=== PATIENT | female | born 1990 | race Caucasian/White ===

== ENCOUNTER 2019-07-19 13:18 | Outpatient (CLI) | payer MEDICAID, SELFPAY ==
--- NOTE | 2019-07-19 13:26 | US_ITS ---
WS: [id number] OB ultrasound, limited, 07/19/2019 Clinical Data: SCREENING FOR UNCERTAIN DATES Comparison: None. Findings: There is a twin . Twin A: The crown-rump length is 2.98 cm with the yolk sac measuring 0.56 cm. The cervical length is 3.91 cm and is closed. heart rate is 167 bpm. The calculated gestational age is 9 weeks 6 days with an MISTY of approximately 02/15/2020. Twin B: [place]-rump length is 3.25 cm with the yolk sac measuring 0.53 cm. The cervical length is 3.91 cm and is closed. The heart rate is 176 bpm. The calculated gestational age is 10 weeks 1 day with an MISTY of approximately 02/13/2020 US/US OB <= 14 wk fetus twins Impression: 1. Twin . 2. heart rate of twin A is 167 bpm, gestational age 9 weeks 6 days with an MISTY of 02/15/2020. 3. heart rate of twin B is 176 bpm, gestational age 10 weeks 1 day with E DD of 02/13/2020.
== END 2019-07-19 13:19 | disposition home or self-care (01) ==
LOC: RAD 13:23
PROVIDERS: Family Provider Nurse Practitioner Family; PCP Family Medicine; Visit Provider Family Medicine
DX: Z36.87 Encounter for antenatal screening for uncertain dates (principal); O30.001 Twin pregnancy, unspecified number of placenta and unspecified number of amniotic sacs, first trimester; Z3A.10 10 weeks gestation of pregnancy
CPT/HCPCS: 76801; 76802

== ENCOUNTER 2019-08-17 14:21 | Outpatient (CLI) | payer MEDICAID, SELFPAY ==
--- NOTE | 2019-08-17 14:15 | US_ITS ---
WS: [id number] US OB limited twins [id number] REASON FOR EXAM: TWIN /?NUMBER OF PLACENTA NUMBER OR AMNIOTIC SACS FINDINGS: The cervix is found to be closed. There was normal. A and B have normal heart rates in the 153 bpm range. 2 gestational's sacs are seen. A posterior placenta is noted. US/US OB limited twins [id number] IMPRESSION: Twin is seen. 2 gestational sacs. The placenta is posteriorly. The fetus is both appear to be active and viable.
== END 2019-08-17 14:22 | disposition home or self-care (01) ==
LOC: US 14:23
PROVIDERS: Family Provider Nurse Practitioner Family; PCP Family Medicine; Visit Provider Family Medicine
DX: O30.091 Twin pregnancy, unable to determine number of placenta and number of amniotic sacs, first trimester (principal); Z3A.00 Weeks of gestation of pregnancy not specified
CPT/HCPCS: 76815

== ENCOUNTER 2019-09-06 19:41 | Emergency (ER) | payer MEDICAID, SELFPAY ==
[2019-09-06 20:17] VITALS: BP 128/44; PULSE 89; RESP 17; TEMP 36.9; O2SAT 96; BMI 38.7
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
[2019-09-06 21:43] VITALS: BP 124/72; PULSE 84; RESP 16; O2SAT 99
--- NOTE | 2019-09-07 11:24 | DCPLANNER ---
banking manager had message to schedule a follow up appointment for patient with ortho. banking manager called ortho, spoke with Sunitha, gave clinic patients information. banking manager was told that patients information would be printed and reviewed. Clinic will call skilled nursing case manager and patient with appointment information.
--- NOTE | 2019-09-08 09:25 | DCPLANNER ---
manager of tax had message from the ortho clinic. manager of tax called ortho, spoke with Pat to confirm that patient was called and told to follow up with current ortho provider. manager of tax was told that patient had not been called, upper caser called patient. manager of tax spoke with patient, informed patient that she would need to follow up with the ortho provider that she has seen in the past.
== END 2019-09-06 21:45 | disposition home or self-care (01) ==
PROVIDERS: Emergency Provider Physician Assistant; Family Provider Nurse Practitioner Family; PCP Family Medicine
DX: S50.11XD Contusion of right forearm, subsequent encounter (principal); M79.89 Other specified soft tissue disorders; F17.200 Nicotine dependence, unspecified, uncomplicated; V89.2XXD Person injured in unspecified motor-vehicle accident, traffic, subsequent encounter
CPT/HCPCS: 12345; 99281

== ENCOUNTER → 2019-09-09 13:29 | Outpatient (BNVA) | payer MEDICAID, SELFPAY | PROVIDERS: Family Provider Nurse Practitioner Family; PCP Family Medicine; Visit Provider Nurse Practitioner Women's Health | DX: O30.042 Twin pregnancy, dichorionic/diamniotic, second trimester (principal); Z3A.17 17 weeks gestation of pregnancy | CPT/HCPCS: 81000 ==

== ENCOUNTER → 2019-09-13 13:21 | Outpatient (BNVA) | payer MEDICAID, SELFPAY | PROVIDERS: Family Provider Nurse Practitioner Family; PCP Family Medicine; Visit Provider Obstetrics & Gynecology | DX: Z46.89 Encounter for fitting and adjustment of other specified devices (principal) | CPT/HCPCS: 84315 ==

== ENCOUNTER 2019-09-20 11:27 | Outpatient (CLI) | payer MEDICAID, SELFPAY ==
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
== END 2019-09-20 11:28 | disposition home or self-care (01) ==
LOC: RAD 11:30
PROVIDERS: Family Provider Nurse Practitioner Family; PCP Family Medicine; Visit Provider Physician Assistant Medical
DX: S42.351A Displaced comminuted fracture of shaft of humerus, right arm, initial encounter for closed fracture (principal); X58.XXXA Exposure to other specified factors, initial encounter
CPT/HCPCS: 73060

== ENCOUNTER → 2019-09-26 13:07 | Outpatient (BNVA) | payer MEDICAID, SELFPAY | PROVIDERS: Family Provider Nurse Practitioner Family; PCP Family Medicine; Visit Provider Obstetrics & Gynecology | DX: Z36.89 Encounter for other specified antenatal screening (principal); O30.002 Twin pregnancy, unspecified number of placenta and unspecified number of amniotic sacs, second trimester; Z3A.20 20 weeks gestation of pregnancy | CPT/HCPCS: 76805; 76810; 80307; 82950 ==

== ENCOUNTER → 2019-11-01 09:15 | Outpatient (BNVA) | payer MEDICAID, SELFPAY | PROVIDERS: Family Provider Nurse Practitioner Family; PCP Family Medicine; Visit Provider Obstetrics & Gynecology | DX: O99.322 Drug use complicating pregnancy, second trimester (principal); O30.042 Twin pregnancy, dichorionic/diamniotic, second trimester; O09.90 Supervision of high risk pregnancy, unspecified, unspecified trimester; R87.612 Low grade squamous intraepithelial lesion on cytologic smear of cervix (LGSIL); O99.330 Smoking (tobacco) complicating pregnancy, unspecified trimester | CPT/HCPCS: 80307; 81000 ==

== ENCOUNTER → 2019-11-21 13:57 | Outpatient (BNVA) | payer MEDICAID, SELFPAY | PROVIDERS: Family Provider Nurse Practitioner Family; PCP Family Medicine; Visit Provider Obstetrics & Gynecology | DX: O09.90 Supervision of high risk pregnancy, unspecified, unspecified trimester (principal) | CPT/HCPCS: 81000; 82950; 85027 ==

== ENCOUNTER → 2019-12-05 10:15 | Outpatient (BNVA) | payer MEDICAID, SELFPAY | PROVIDERS: Family Provider Nurse Practitioner Family; PCP Family Medicine; Visit Provider Obstetrics & Gynecology | DX: Z34.90 Encounter for supervision of normal pregnancy, unspecified, unspecified trimester (principal) | CPT/HCPCS: 81000 ==

== ENCOUNTER → 2019-12-23 14:09 | Outpatient (BNVA) | payer MEDICAID, SELFPAY | PROVIDERS: Family Provider Nurse Practitioner Family; PCP Family Medicine; Visit Provider Obstetrics & Gynecology | DX: O99.323 Drug use complicating pregnancy, third trimester (principal); O30.043 Twin pregnancy, dichorionic/diamniotic, third trimester; O99.613 Diseases of the digestive system complicating pregnancy, third trimester; K21.9 Gastro-esophageal reflux disease without esophagitis; O99.333 Smoking (tobacco) complicating pregnancy, third trimester; F17.210 Nicotine dependence, cigarettes, uncomplicated; O35.9XX2 Maternal care for (suspected) fetal abnormality and damage, unspecified, fetus 2; F12.90 Cannabis use, unspecified, uncomplicated; O99.213 Obesity complicating pregnancy, third trimester; Z3A.32 32 weeks gestation of pregnancy | CPT/HCPCS: 81000 ==

== ENCOUNTER → 2020-01-03 07:51 | Outpatient (BNVA) | payer MEDICAID, SELFPAY | PROVIDERS: Family Provider Nurse Practitioner Family; PCP Family Medicine; Visit Provider Obstetrics & Gynecology | DX: O09.90 Supervision of high risk pregnancy, unspecified, unspecified trimester (principal); O30.043 Twin pregnancy, dichorionic/diamniotic, third trimester; Z3A.00 Weeks of gestation of pregnancy not specified | CPT/HCPCS: 81000 ==

== ENCOUNTER → 2020-01-12 10:21 | Outpatient (BNVA) | payer MEDICAID, SELFPAY | PROVIDERS: Family Provider Nurse Practitioner Family; PCP Family Medicine; Visit Provider Obstetrics & Gynecology | DX: O30.042 Twin pregnancy, dichorionic/diamniotic, second trimester (principal) | CPT/HCPCS: 81000 ==

== ENCOUNTER → 2020-01-25 09:03 | Outpatient (BNVA) | payer MEDICAID, SELFPAY | PROVIDERS: Family Provider Nurse Practitioner Family; PCP Family Medicine; Visit Provider Obstetrics & Gynecology | DX: Z34.90 Encounter for supervision of normal pregnancy, unspecified, unspecified trimester (principal); O30.043 Twin pregnancy, dichorionic/diamniotic, third trimester | CPT/HCPCS: 81000; 87635 ==

== ENCOUNTER → 2020-03-12 10:52 | Outpatient (BNVA) | payer MEDICAID, SELFPAY | PROVIDERS: Family Provider Nurse Practitioner Family; PCP Family Medicine; Visit Provider Obstetrics & Gynecology | DX: R87.612 Low grade squamous intraepithelial lesion on cytologic smear of cervix (LGSIL) (principal) | CPT/HCPCS: 88175 ==

== ENCOUNTER 2021-01-10 19:19 | Inpatient (IN) | payer SELFPAY ==
[2021-01-10 20:46] LABS: Basophils % 0.7 %; Eosinophils # 0.2 10^3/uL (0.0-0.8); Eosinophils % 3.4 %; Hematocrit 41.1 % (37.0-47.0); Hemoglobin 13.5 g/dL (11.5-15.3); Lymphocytes # 2.1 10^3/uL (0.8-4.8); Lymphocytes % 35.4 %; Mean Corpuscular HGB Conc 32.8 g/dL (30.0-36.0); Mean Corpuscular Hemoglobin 31.3 pg (28.0-34.0); Mean Corpuscular Volume 95.4 fL (81-99); Mean Platelet Volume 10.7 fL (7.4-10.4); Monocytes # 0.5 10^3/uL (0.2-0.9); Monocytes % 8.7 %; Neutrophils # 3.01 10^3/uL (1.8-7.7); Neutrophils % 51.6 %; Nucleated Red Blood Cells % 0 %; Platelet Count 222 10^3/cmm (130-400); Red Blood Count 4.31 10^6/uL (4.1-5.3); Red Cell Distribution Width 12.9 % (12.1-15.1); White Blood Count 5.8 10^3/uL (4.0-10.0)
[2021-01-10 20:47] LABS: Bilirubin Urine Neg (Negative); Blood Urine 3+ (Negative); Glucose Urine UA Norm (Normal); Ketones Urine Negative (Negative); Nitrate Urine Negative (Negative); Protein Urine Trace (Negative); Specific Gravity, Urine 1.025 (1.005-1.030); Urine Appearance Hazy (CLEAR); Urine Color Yellow (Yellow); pH Urine 5 (5-7)
[2021-01-10 20:48] LABS: Add Urine Microscopic? YES; Leukocyte Esterase Urine Negative (Negative); RBC Urine 0-4 /hpf (0-2); Squamous Epithelial Cell Urine 40-55 /hpf (0-5); Urobilinogen Urine Norm (Negative)
[2021-01-10 20:49] LABS: Add Urine Culture? Yes; Bacteria Urine 4+ /hpf
[2021-01-10 20:50] LABS: Amphetamines Screen Urine Positive (Negative); Barbiturates Screen Urine Negative (Negative); Benzodiazepines Screen Urine Negative (Negative); Cocaine Screen Urine Negative (Negative); Opiate Screen Urine Negative (Negative); PCP Screen Urine Negative (Negative); THC Screen Urine Positive (Negative)
[2021-01-10] MEDS: LORazepam 1 mg Tablet PO (20:51)
[2021-01-10 20:52] VITALS: BP 155/80; PULSE 89; RESP 18; TEMP 36.6; O2SAT 98; BMI 36.0
[2021-01-10 20:56] LABS: HCG, Serum Qual Negative (Negative)
[2021-01-10 21:11] LABS: Acetaminophen < 5.0 ug/mL (10-30); Alanine Aminotransferase 15 U/L (0-33); Albumin Level 4.4 g/dL (3.5-5.2); Alcohol Level < 10 mg/dL (0-10); Alkaline Phosphatase 78 IU/L (35-105); Anion Gap 13.8 (5-19); Aspartate Amino Transferase 15 U/L (0-32); Blood Urea Nitrogen 11 mg/dL (6-20); Calcium 9.3 mg/dL (8.5-10.5); Carbon Dioxide 25 mmol/L (22-29); Chloride 105 mmol/L (98-107); Globulin 2.6 g/dL (1.3-4.6); Glomerular Filtration Rate 83.1 mL/min (90-130); Glucose 106 mg/dL (65-115); Osmolality Calculated 290 mOsm/kg (285-295); Potassium 3.8 mmol/L (3.5-5.1); Salicylate < 0.3 mg/dL (3-10); Sodium 140 mmol/L (136-145); Thyroid Stimulating Hormone 0.61 uIU/mL (0.27-4.20); Total Bilirubin 0.2 mg/dL (0.15-1.2)
--- NOTE | 2021-01-10 21:28 | ED_ITS ---
HPI - Psych General: Chief Complaint: Psychiatric Symptoms Stated Complaint: SI Time Seen by Provider: 01/10/21 19:30 History of Present Illness: HPI Narrative: The patient is a 30-year-old female who comes to the ER complaining of suicidal ideations. She made a statement that she was going to kill herself to the [employer] who wrote a 96-hour hold. She is upset about circumstances in her life related to DFS being called and her baby's father have the children. She says the children are safe with the father but she is upset that he gets them. She says she does not want to wake up. She says that she is depressed and her life is very tough right now. complaint: suicidal ideation Context: significant life stressor Associated psychiatric symptoms: depression and suicidal ideation Associated symptoms: Reports suicidal ideation If self harm: admits thoughts of self harm Review of Systems General: Reports: 10 or more systems reviewed and unremarkable except in HPI and below Const: Denies: fatigue Eyes: Denies: change in vision, blurry vision or eye redness ENMT: Denies: throat pain, swelling of lips/tongue, ear or mastoid pain or nasal congestion Card: Denies: chest pain, palpitations, irregular heart rhythm, edema, dyspnea on exertion or orthopnea Resp: Denies: dyspnea, productive cough or non-productive cough GI: Denies: abdominal pain, diarrhea or GI cramping : Denies: flank pain, difficulty voiding, urinary frequency or urinary urgency Musc: Denies: neck pain, back pain, extremity pain, joint pain, joint redness, limited range of motion or muscle weakness Skin/Breast: Denies: rash, pruritus, erythema, skin pain or skin tenderness Neuro: Denies: headache(s), numbness in extremities, weakness in extremities, sensory changes, difficulty walking, dizziness, confusion or Slurred speech present Psych: Reports: suicidal ideation Endo: Denies: polyuria All/Imm: Denies: urticaria, throat swelling or tongue swelling PFSH ED PFSH: Medical History No pertinent past medical history Denies diabetes, asthma, hypertension, seizures, DVT/PE PMD: None Surgical History Breast abscess Left breast for MRSA about 2014-was done under IV sedation in [place] emergency room. Status post delivery 01/28/2020-primary with tubal ligation performed in [facility]--operative report obtained and scanned. T-shaped uterine incision. Tubal ligation performed. performed by Dr. Song and tubal ligation and closure of incision performed by Dr. Jha Status post tubal ligation 01/28/2020--tubal ligation performed at time of . Bilateral partial salpingectomy performed by Dr. Jha at [facility]. Pathology unable to be obtained Family History Grandfather Chronic kidney disease (CKD) Grandfather Mcnally, paternal Diabetes Hypertension Grandmother Diabetes Father Diabetes Grandfather Stroke Denies family history of CAD (coronary artery disease) Clotting disorder Dementia Hyperlipidemia Psychiatric illness Suicide Anesthesia complication Bleeding disorder Family history of premature coronary artery disease Lung disease Cancer Social History Smoking and tobacco status: former smoker Alcohol intake: never Female Reproductive History: Date of last menstrual period: 01/03/21 Physical Exam Const: COMMON NORMALS: no acute distress, average body habitus, patient oriented x3, no limitations, healthy appearing, alert and well nourished GENERAL APPEARANCE: cooperative, comfortable and well developed ORIENTATION/CONSCIOUSNESS: Yes awake, Yes oriented to person, Yes oriented to place and Yes oriented to time HENMT: COMMON NORMALS: normocephalic, external ears normal and Normal external nose present HEAD & SCALP: normal to inspection and normocephalic NOSE: Normal external nose present EXTERNAL EAR: Yes external ears normal MOUTH: Normal oral and palatal mucosa present THROAT: posterior oropharynx normal Eye: COMMON NORMALS: Equal, round and reactive pupils present and EOMs intact bilaterally GENERAL EYE: appearance normal, both eyes and all related structures PUPIL: Yes Equal, round and reactive pupils present Neck/C-Spine: COMMON NORMALS: full ROM, no lymphadenopathy, no meningeal signs and no JVD GENERAL: Yes normal visual inspection Lymph: LYMPHATIC: no lymphadenopathy noted Chest: COMMONS NORMALS: normal inspection of the chest and normal palpation of entire chest wall Resp: COMMON NORMALS: normal respiratory effort, No retractions, No use of accessory muscles, clear to auscultation bilaterally and percussion normal EFFORT & INSPECTION: Yes able to speak in complete sentences AUSCULTATION: clear to auscultation bilaterally PERCUSSION: percussion normal Cardio: COMMON NORMALS: no JVD, regular rate, regular rhythm, S1 normal heart sound present, S2 normal heart sound present and Peripheral pulses 2+ throughout RATE: regular rate RHYTHM: regular rhythm HEART SOUNDS: S1 normal heart sound present and S2 normal heart sound present PERIPHERAL PULSES: Peripheral pulses 2+ throughout GI: COMMON NORMALS: Normal to inspection, nondistended, normoactive bowel sounds present, Soft to palpation, non-tender and no masses INSPECTION: Yes normal to inspection PALPATION: Yes Soft to palpation : COMMON NORMALS: Yes no CVA tenderness BLADDER/KIDNEY EXAM: Yes no CVA tenderness Back/Pelvis: COMMON NORMALS: no CVA tenderness, thoracic and lumbar spine normal to inspection, no thoracic nor lumbar tenderness and thoraco-lumbar ROM normal Extremity: COMMON NORMALS: normal to inspection, full ROM, capillary refill normal, no joint enlargement and no pedal edema GENERAL: Yes normal exam except as noted Neuro: COMMON NORMALS: patient oriented x3, CN's II-XII intact bilaterally, moves all extremities, no focal motor deficits, no sensory deficits noted and gait normal SENSORIUM/ORIENTATION: Yes alert, Yes oriented to person, Yes oriented to place and Yes oriented to time MENINGEAL SIGNS: Yes no meningeal signs Psych: COMMON NORMALS: speech normal APPEARANCE: Yes unkempt ATTITUDE: Yes calm SPEECH: Yes normal speech MOOD & AFFECT: Yes depressed mood, Yes anxious, Yes sad and Yes tearful THOUGHT CONTENT: Yes Suicidality present INSIGHT: Poor insight present (Psych) JUDGEMENT: Poor judgement present (Psych) Skin: COMMON NORMALS: no rashes or lesions noted GENERAL SKIN EXAM: no rashes or lesions noted Course Vital Signs: Vital signs: Vital Signs Temperature 97.9 F 01/10/21 20:52 Pulse Rate 89 01/10/21 20:52 Respiratory Rate 18 01/10/21 20:52 Blood Pressure 155/80 01/10/21 20:52 Pulse Oximetry 98 01/10/21 20:52 MDM - Psych MDM Narrative: Medical decision making narrative: The patient is expressing suicidal ideations and is here on a 96-hour hold. Discussed with Dr. Mckeon who accepts for admission. Possible she has a small UTI as well. Recommended Keflex for 5 days. Stable for admission. Lab Data: Labs: Lab Results 01/10/21 01/10/21 01/10/21 Range/Units 20:16 20:16 20:38 WBC 5.8 (4.0-10.0) 10^3/ uL RBC 4.31 (4.1-5.3) 10^6/u L Hgb 13.5 (11.5-15.3) g/dL Hct 41.1 (37.0-47.0) % MCV 95.4 (81-99) fL MCH 31.3 (28.0-34.0) pg MCHC 32.8 (30.0-36.0) g/dL RDW 12.9 (12.1-15.1) % Plt Count 222 (130-400) 10^3/c mm MPV 10.7 H (7.4-10.4) fL Neut % (Auto) 51.6 % Lymph % (Auto) 35.4 % Traill % (Auto) 8.7 % Eos % (Auto) 3.4 % Baso % (Auto) 0.7 % Neut # (Auto) 3.01 (1.8-7.7) 10^3/u L Lymph # (Auto) 2.1 (0.8-4.8) 10^3/u L Traill # (Auto) 0.5 (0.2-0.9) 10^3/u L Eos # (Auto) 0.2 (0.0-0.8) 10^3/u L Baso # (Auto) 0.0 (0.0-0.1) 10^3/u L Nucleated RBC % (a uto) 0 % Nucleated RBCs # 0.0 /100WBC Sodium (136-145) mmol/L Potassium (3.5-5.1) mmol/L Chloride (98-107) mmol/L Carbon Dioxide (22-29) mmol/L Anion Gap (5-19) BUN (6-20) mg/dL Creatinine (0.5-0.9) mg/dL GFR Calculation (90-130) mL/min Glucose (65-115) mg/dL Calculated Osmolal ity (285-295) mOsm/k g Calcium (8.5-10.5) mg/dL Total Bilirubin (0.15-1.2) mg/dL AST (0-32) U/L ALT (0-33) U/L Alkaline Phosphata se (35-105) IU/L Total Protein (6.6-8.7) g/dL Albumin (3.5-5.2) g/dL Globulin (1.3-4.6) g/dL TSH (0.27-4.20) uIU/ mL HCG, Qual (Negative) Urine Color Yellow (Yellow) Urine Appearance Hazy A (CLEAR) Urine pH 5 (5-7) Ur Specific Gravit y 1.025 (1.005-1.030) Urine Protein Trace (Negative) Urine Glucose (UA) Norm (Normal) Urine Ketones Negative (Negative) Urine Blood 3+ H (Negative) Urine Nitrate Negative (Negative) Urine Bilirubin Neg (Negative) Urine Urobilinogen Norm (Negative) mg/dL Ur Leukocyte Gisela ase Negative (Negative) Urine RBC 0-4 H (0-2) /hpf Urine WBC 10-15 H (0-5) /hpf Ur Squamous Epith Cells 40-55 H (0-5) /hpf Amorphous Sediment Not Reportable Urine Bacteria 4+ H (NONE) /hpf Salicylates (3-10) mg/dL Urine Opiates Scre en Negative (Negative) ng/mL Acetaminophen (10-30) ug/mL Ur Barbiturates Sc reen Negative (Negative) ng/mL Ur Phencyclidine S crn Negative (Negative) ng/mL Ur Amphetamines Sc reen Positive H (Negative) ng/mL U Benzodiazepines Scrn Negative (Negative) ng/mL Urine Cocaine Scre en Negative (Negative) ng/mL U Marijuana (THC) Screen Positive H (Negative) ng/mL Ethyl Alcohol (0-10) mg/dL 01/10/21 01/10/21 Range/Units 20:38 20:38 WBC (4.0-10.0) 10^3/ uL RBC (4.1-5.3) 10^6/u L Hgb (11.5-15.3) g/dL Hct (37.0-47.0) % MCV (81-99) fL MCH (28.0-34.0) pg MCHC (30.0-36.0) g/dL RDW (12.1-15.1) % Plt Count (130-400) 10^3/c mm MPV (7.4-10.4) fL Neut % (Auto) % Lymph % (Auto) % Traill % (Auto) % Eos % (Auto) % Baso % (Auto) % Neut # (Auto) (1.8-7.7) 10^3/u L Lymph # (Auto) (0.8-4.8) 10^3/u L Traill # (Auto) (0.2-0.9) 10^3/u L Eos # (Auto) (0.0-0.8) 10^3/u L Baso # (Auto) (0.0-0.1) 10^3/u L Nucleated RBC % (a uto) % Nucleated RBCs # /100WBC Sodium 140 (136-145) mmol/L Potassium 3.8 (3.5-5.1) mmol/L Chloride 105 (98-107) mmol/L Carbon Dioxide 25 (22-29) mmol/L Anion Gap 13.8 (5-19) BUN 11 (6-20) mg/dL Creatinine 0.8 (0.5-0.9) mg/dL GFR Calculation 83.1 L (90-130) mL/min Glucose 106 (65-115) mg/dL Calculated Osmolal ity 290 (285-295) mOsm/k g Calcium 9.3 (8.5-10.5) mg/dL Total Bilirubin 0.2 (0.15-1.2) mg/dL AST 15 (0-32) U/L ALT 15 (0-33) U/L Alkaline Phosphata se 78 (35-105) IU/L Total Protein 7.0 (6.6-8.7) g/dL Albumin 4.4 (3.5-5.2) g/dL Globulin 2.6 (1.3-4.6) g/dL TSH 0.61 (0.27-4.20) uIU/ mL HCG, Qual Negative (Negative) Urine Color (Yellow) Urine Appearance (CLEAR) Urine pH (5-7) Ur Specific Gravit y (1.005-1.030) Urine Protein (Negative) Urine Glucose (UA) (Normal) Urine Ketones (Negative) Urine Blood (Negative) Urine Nitrate (Negative) Urine Bilirubin (Negative) Urine Urobilinogen (Negative) mg/dL Ur Leukocyte Gisela ase (Negative) Urine RBC (0-2) /hpf Urine WBC (0-5) /hpf Ur Squamous Epith Cells (0-5) /hpf Amorphous Sediment Urine Bacteria (NONE) /hpf Salicylates < 0.3 L (3-10) mg/dL Urine Opiates Scre en (Negative) ng/mL Acetaminophen < 5.0 L (10-30) ug/mL Ur Barbiturates Sc reen (Negative) ng/mL Ur Phencyclidine S crn (Negative) ng/mL Ur Amphetamines Sc reen (Negative) ng/mL U Benzodiazepines Scrn (Negative) ng/mL Urine Cocaine Scre en (Negative) ng/mL U Marijuana (THC) Screen (Negative) ng/mL Ethyl Alcohol < 10 (0-10) mg/dL Discharge Plan Discharge Patient Disposition: Admitted As Inpatient Clinical Impression: Suicidal ideation, Urinary tract infection Condition: Stable Coding Level of Care Code ED Supervisor Pile Driving for Mechelle Weston
[2021-01-10] MEDS: cephALEXin 500 mg Capsule PO (21:44)
[2021-01-10 22:58] VITALS: BP 115/80; PULSE 96; RESP 20; TEMP 36.5; O2SAT 99
[2021-01-11] MEDS: hyDROXYzine 25 mg Capsule 50 MG PO ×2 (00:26→21:25)
[2021-01-11] MEDS: acetaminophen 325 mg Tablet 650 MG PO (00:26)
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
[2021-01-11 06:00] VITALS: BP 96/55; PULSE 71; RESP 18; TEMP 36.8; O2SAT 97
[2021-01-11] MEDS: cephALEXin 500 mg Capsule PO ×2 (08:47→21:25)
[2021-01-11 14:00] VITALS: BP 124/76; PULSE 65; RESP 17; TEMP 36.7; O2SAT 97
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
[2021-01-11] MEDS: sertraline 50 mg Tablet PO (17:53)
--- NOTE | 2021-01-11 21:30 | PC.NURSE ---
vistaril given for anxiety
[2021-01-11 22:00] VITALS: BP 134/80; PULSE 84; RESP 18; TEMP 36.5; O2SAT 98
[2021-01-12 06:00] VITALS: BP 135/83; PULSE 66; RESP 17; TEMP 36.4; O2SAT 95
[2021-01-12] MEDS: sertraline 50 mg Tablet PO (08:39)
[2021-01-12] MEDS: cephALEXin 500 mg Capsule PO ×2 (08:40→21:37)
[2021-01-12 14:00] VITALS: BP 130/75; PULSE 62; RESP 18; TEMP 36.6; O2SAT 100
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
[2021-01-12 20:48] VITALS: BP 111/70; PULSE 94; RESP 16; TEMP 37; O2SAT 95
[2021-01-12] MEDS: hyDROXYzine 25 mg Capsule 50 MG PO (21:38)
[2021-01-12] MEDS: trazodone 50 mg Tablet PO (21:38)
--- NOTE | 2021-01-12 21:40 | PC.NURSE ---
patient requested meds for sleep and anxiety. Trazodone 50mg PO and Vistaril 50MG PO given.
[2021-01-13 06:00] VITALS: BP 135/75; PULSE 74; RESP 16; TEMP 36.8; O2SAT 94
[2021-01-13] MEDS: cephALEXin 500 mg Capsule PO ×2 (08:18→20:57)
[2021-01-13] MEDS: sertraline 50 mg Tablet PO (08:18)
[2021-01-13 14:00] VITALS: BP 135/84; PULSE 100; RESP 16; TEMP 36.7; O2SAT 97
--- NOTE | 2021-01-13 14:33 | P.PN_ITS ---
Subjective NPU Subjective: Interval history: I met with the patient in the day room and she says that she is doing well. She slept well, appetite is good, and she is feeling less helpless, hopeless, and worthless. She is not feeling suicidal today. No homicidal ideation. She denies any auditory or visual hallucinations. She denies side effects from medication. Mental Status Exam MSE Comments: The patient's grooming continues to improve, and she is more relaxed and cooperative. Eye contact was good. She was alert and oriented to person and situation. Attention was intact to exam. Mood is improved, and affect was brighter. Thought process: Logical and goal-directed. Thought content: She denies having suicidal and homicidal ideation today. No auditory or visual hallucinations. No delusions are noted. Insight and judgment are improving, as is impulse control. Vitals/I&O/Wt Last Vital Signs Temp 98.0 F 01/13/21 14:00 Pulse 100 01/13/21 14:00 Resp 16 01/13/21 14:00 BP 135/84 01/13/21 14:00 Pulse Ox 97 01/13/21 14:00 Weight last 48 hrs Weight 104.326 kg Data NPU : 01/10/21 20:38 01/10/21 20:38 Micro: Microbiology 01/10/21 20:16 Urine Culture - Final Urine,Clean Catch Microbiology 01/10/21 20:16 Urine,Clean Catch Urine Culture - Final A&P Assessment and plan (1) Major depressive disorder, recurrent severe without psychotic features: Status: Acute (2) Suicidal ideation: Status: Acute (3) Urinary tract infection: Status: Acute (4) LGSIL on Pap smear of cervix: Status: Acute Additional A&P Information The patient is a 30-year-old woman with a history of had a relapse of depression after several traumatic events. She is admitted for suicidal ideation. 1. Restarted Zoloft at 50 mg daily for depression. No side effects. 2. Continue every 15-minute checks for safety. 3. Encourage individual, group, and milieu therapies. 4. Encourage sober living treatment after discharge at the highest level of care to which she is willing to commit. Involuntary Hold Information 96 Hour Hold: 96 Hour Involuntary Admission: Yes 96 Hour Hold Ending Date: 01/16/21 96 Hour Hold Ending Time: 20:05 Attestations NPU Medical Necessity Statement*: Hospitalization is medically necessary to prevent access, for medication stabilization, and for coordination for safe discharge. Estimated discharge tomorrow, if she continues to do well. Coding Level of Care Code Acute Senior Branch Manager for Praneethg Fwd Diagnoses Major depressive disorder, recurrent severe without psychotic features F33.2 Suicidal ideation R45.851 Urinary tract infection N39.0 LGSIL on Pap smear of cervix R87.612
[2021-01-13] MEDS: trazodone 50 mg Tablet PO (21:08)
[2021-01-13 22:00] VITALS: BP 115/68; PULSE 70; RESP 17; TEMP 36.4; O2SAT 95
[2021-01-14 06:00] VITALS: BP 117/74; PULSE 72; RESP 17; TEMP 36.8; O2SAT 95
[2021-01-14] MEDS: sertraline 50 mg Tablet PO (08:00)
[2021-01-14] MEDS: cephALEXin 500 mg Capsule PO (08:00)
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
[2021-01-14 12:03] VITALS: BP 117/74; PULSE 72; RESP 17; TEMP 36.8; O2SAT 95
== END 2021-01-14 13:37 | disposition home or self-care (01) | DRG 885 ==
LOC: ER 21:34 → NP 21:48
PROVIDERS: Admitting Provider Psychiatry & Neurology Child & Adolescent Psychiatry; Emergency Provider Family Medicine; PCP Family Medicine; Visit Provider Psychiatry & Neurology Child & Adolescent Psychiatry
DX: F33.2 Major depressive disorder, recurrent severe without psychotic features (principal); N39.0 Urinary tract infection, site not specified; R45.851 Suicidal ideations; F12.20 Cannabis dependence, uncomplicated; R87.612 Low grade squamous intraepithelial lesion on cytologic smear of cervix (LGSIL); Z87.59 Personal history of other complications of pregnancy, childbirth and the puerperium; Z98.51 Tubal ligation status; Z82.49 Family history of ischemic heart disease and other diseases of the circulatory system; Z83.3 Family history of diabetes mellitus; Z84.1 Family history of disorders of kidney and ureter; Z87.891 Personal history of nicotine dependence
CPT/HCPCS: 80053; 80306; 80307; 81001; 84443; 84703; 85025; 87086; 99285

== ENCOUNTER → 2021-04-30 13:31 | Outpatient (BNVA) | payer BC, SELFPAY | PROVIDERS: Visit Provider Psychiatry & Neurology Psychiatry | DX: F33.2 Major depressive disorder, recurrent severe without psychotic features (principal); F43.12 Post-traumatic stress disorder, chronic; F12.20 Cannabis dependence, uncomplicated | CPT/HCPCS: 99204 ==

== ENCOUNTER 2021-12-30 20:14 | Emergency (ER) | payer MEDICAID, SELFPAY ==
[2021-12-30 20:28] VITALS: BP 154/111; PULSE 99; RESP 18; TEMP 37.5; O2SAT 98; BMI 43.4
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
[2021-12-30] MEDS: neomycin-poly-hydrocort Otic Susp 10 mL Btl 4 DROP EAR-BOTH (21:52)
== END 2021-12-30 22:39 | disposition home or self-care (01) ==
PROVIDERS: Emergency Provider Nurse Practitioner Family
DX: H60.333 Swimmer's ear, bilateral (principal); F17.210 Nicotine dependence, cigarettes, uncomplicated
CPT/HCPCS: 99283